=== PATIENT | male | born 1955 | race Caucasian/White ===

== ENCOUNTER 2017-09-26 09:22 | Emergency (ER) | payer OTHER | END 2017-09-26 09:44 | disposition left against medical advice (07) | LOC: UCEAST 09:22 | DX: J06.9 Acute upper respiratory infection, unspecified (principal); Z53.21 Procedure and treatment not carried out due to patient leaving prior to being seen by health care provider ==

== ENCOUNTER 2018-01-23 08:21 | Emergency (ER) | payer OTHER ==
--- NOTE | 2018-01-23 08:29 | UC ---
Hand/Wrist HPI - HPI Summary HPI Summary: 62 yo male presents with right thumb injury. He tells me that 2 days ago he was hiking and fell over a tree stump and sustained a FOOSH type injury. Later that night his right thumb began to hurt. Since that time has had increased pain and swelling with decreased movement. Denies numbness or tingling. - History Of Current Complaint Stated Complaint: THUMB INJURY Time Seen by Provider: 01/23/18 08:26 Hx Obtained From: Patient Onset/Duration: Sudden Onset Severity Initially: Moderate Severity Currently: Severe Pain Intensity: 7 Pain Scale Used: 0-10 Numeric Character Of Pain: Aching, Throbbing, Stiffness - Allergies/Home Medications Allergies/Adverse Reactions: Allergies Allergy/AdvReac Type Severity Reaction Status Date / Time Penicillins Allergy Hives Verified 01/23/18 08:33 Home Medications: Home Medications Ibuprofen 600 mg PO ONCE 01/23/18 [History Confirmed 01/23/18] PMH/Surg Hx/FS Hx/Imm Hx - Additional Past Medical History Additional PMH: BPH HSV2 Previously Healthy: Yes - Surgical History Surgical History: Yes Surgery Procedure, Year, and Place: L ankle surgery - Family History Known Family History: Positive: Cardiac Disease - Social History Occupation: Employed Full-time Lives: With Family Alcohol Use: Occasionally Substance Use Type: None Smoking Status (MU): Former Smoker - Immunization History Most Recent Influenza Vaccination: Apr 22 Most Recent Tetanus Shot: 2007 Most Recent Pneumonia Vaccination: no Review of Systems Constitutional: Negative Skin: Negative Respiratory: Negative Cardiovascular: Negative Neurovascular: Negative Musculoskeletal: Other: - Right thumb pain Neurological: Negative Psychological: Negative All Other Systems Reviewed And Are Negative: Yes Physical Exam - Summary Physical Exam Summary: GENERAL: NAD. WDWN. No pain distress. SKIN: No rashes, sores, lesions, or open wounds. NECK: Supple. Nontender. No lymphadenopathy. CHEST: No accessory muscle use. Breathing comfortably and in no distress. CV: Pulses intact radial and ulnar. MSK: RIGHT HAND: TTP all about thumb. Unable to flex or oppose due to pain. Keeps thumb extended. Moderate edema at thenar eminence. WRIST: NTTP and FROM. No snuffbox tenderness. NEURO: Alert. Sensations intact hand and all fingers. PSYCH: Age appropriate behavior. Triage Information Reviewed: Yes Vital Signs: Vital Signs: Temp Pulse Resp BP Pulse Ox 98.2 F 60 18 146/89 97 01/23/18 08:28 01/23/18 08:28 01/23/18 08:28 01/23/18 08:28 01/23/18 08:28 Vital Signs Reviewed: Yes Hand/Wrist Course/Dx - Course Course Of Treatment: XR: IMPRESSION: No fracture of the right thumb is noted. Suspect thumb sprain. Pt was provided with a thumb spica splint and advised to RICE and take ibuprofen for pain. - Differential Dx/Diagnosis Provider Diagnoses: Right thumb sprain Discharge - Sign-Out/Discharge Documenting (check all that apply): Patient Departure - Discharge Plan Condition: Stable Disposition: HOME Prescriptions: Ibuprofen TAB* [Motrin TAB* 600 MG] 600 mg PO Q8H PRN #30 tab PRN Reason: Pain Patient Education Materials: [facility] (ED) Referrals: Fabio Garcia MD [Primary Care Provider] - [facility] [Provider Group] - If Needed Additional Instructions: If you develop a fever, shortness of breath, chest pain, new or worsening symptoms - please call your PCP or go to the ED. Your blood pressure was high at todays visit. Please see your primary provider within 4 weeks for recheck and re-evaluation. 1) Rest, Ice, and elevate your hand/thumb as much as possible 2) Use the thumb splint for added comfort and support - Billing Disposition and Condition Condition: STABLE Disposition: Home
[2018-01-23 08:33] VITALS: BP 146/89
--- NOTE | 2018-01-23 09:02 | RAD ---
Indication: Right thumb pain after fall. 3 views of the right thumb demonstrates no fracture. No other bone or joint abnormality is identified. IMPRESSION: No fracture of the right thumb is noted.
== END 2018-01-23 09:19 | disposition home or self-care (01) ==
LOC: UCEAST 08:21
DX: S63.601A Unspecified sprain of right thumb, initial encounter (principal); W01.0XXA Fall on same level from slipping, tripping and stumbling without subsequent striking against object, initial encounter; Y93.01 Activity, walking, marching and hiking; Y92.9 Unspecified place or not applicable; Z88.0 Allergy status to penicillin; Z82.49 Family history of ischemic heart disease and other diseases of the circulatory system; Z87.891 Personal history of nicotine dependence
CPT/HCPCS: 99211; G0463

== ENCOUNTER 2019-08-13 07:37 | Inpatient (IN) | payer MEDICARE, OTHER ==
[2019-08-13] MEDS ORDERED: Aspirin 81 mg CHEW TAB* 81 MG TAB.CHEW PO ONE (07:47)
--- NOTE | 2019-08-13 07:55 | ED ---
HPI Chest Pain - HPI Summary HPI Summary: 64 year old M arriving via private car complains of chest pain described as heaviness and ache that started while using the thread mill yesterday 08/12/2019. Patient states he woke up today 08/13/2019 AM with diffuse chest pain radiating into the left side of his neck, jaw, and mouth. He states the pain does not radiate down his left arm. Patient states he drank coffee this morning which aggravated his chest pain. No shortness of breath. Symptoms rated 7/10 in severity at 0730 and 4/10 in severity currently. Patient states he did not take any medications prior to arrival. Symptoms aggravated by nothing. Symptoms alleviated by nothing. Patient states he has never had these symptoms before. No cardiac Hx. No Hx hypertension. Patient states Hx GERD 10-15 years ago. Medications reviewed. Allergies noted. Former smoker. Admits to ETOH daily. Patient states he exercises daily. - History of Current Complaint Chief Complaint: EDChestPainROMI Time Seen by Provider: 08/13/19 07:47 Hx Obtained From: Patient Onset/Duration: Started Days Ago - yesterday 08/12/2019, Still Present Timing: Intermittent Initial Severity: Severe - 7/10 Current Severity: Moderate Pain Intensity: 4 Pain Scale Used: 0-10 Numeric Chest Pain Location: Diffuse Chest Pain Radiates: Yes Chest Pain Radiates To:: Other - left side of his neck, jaw, mouth Character: Heaviness, Other: - ache Aggravating Factor(s): Nothing Alleviating Factor(s): Nothing Associated Signs and Symptoms: Negative: Shortness of Breath - Allergy/Home Medications Allergies/Adverse Reactions: Allergies Allergy/AdvReac Type Severity Reaction Status Date / Time Penicillins Allergy Hives Verified 01/23/18 08:33 PMH/Surg Hx/FS Hx/Imm Hx Endocrine/Hematology History: Denies: Hx Anemia, Hx Unexplained Bleeding Cardiovascular History: Denies: Hx Aneurysm, Hx Angina, Hx Angioplasty, Hx Auto Implanted Cardiovert Defib, Hx Cardiac Arrest, Hx Cardiomegaly, Hx Congenital Heart Disease, Hx Congestive Heart Failure, Hx Coronary Artery Disease, Hx Deep Vein Thrombosis, Hx Embolism, Hx Hypercholesterolemia, Hx Hypotension, Hx Hypertension, Hx Pacemaker/ICD, Hx Peripheral Vascular Disease, Hx Rheumatic Fever, Hx Syncope, Hx Valvular Heart Disease, Other Cardiovascular Problems/Disorders GI History: Reports: Hx Gastroesophageal Reflux Disease Musculoskeletal History: Denies: Hx Rheumatoid Arthritis, Hx Osteoporosis Sensory History: Reports: Hx Contacts or Glasses Denies: Hx Cataracts, Hx Eye Injury, Hx Eye Prosthesis, Hx Glaucoma, Hx Legally Blind, Hx Macular Degeneration, Hx Vision Problem, Hx Deafness, Hx Hearing Aid, Hx Hearing Problem, Other Sensory Impairments Opthamlomology History: Reports: Hx Contacts or Glasses Denies: Hx Cataracts, Hx Eye Injury, Hx Eye Prosthesis, Hx Glaucoma, Hx Legally Blind, Hx Macular Degeneration, Hx Vision Problem, Other Sensory Impairments Neurological History: Denies: Hx Dementia, Hx Developmental Delay, Hx Headaches, Hx Migraine, Hx Nerve Disease, Hx Seizures, Hx Spinal Cord Injury, Hx Transient Ischemic Attacks (TIA), Other Neuro Impairments/Disorders - Surgical History Surgery Procedure, Year, and Place: L ankle surgery Infectious Disease History: No Infectious Disease History: Denies: Traveled Outside the [place] in Last 30 Days - Family History Known Family History: Positive: Cardiac Disease - Social History Alcohol Use: Daily Substance Use Type: Reports: None Hx Tobacco Use: Yes Smoking Status (MU): Former Smoker Review of Systems Positive: Chest Pain Negative: Shortness Of Breath All Other Systems Reviewed And Are Negative: Yes Physical Exam - Summary Physical Exam Summary: Constitutional: Well-developed, Well-nourished, Alert. (-) Distressed Skin: Warm, Dry HENT: Normocephalic; Atraumatic Eyes: Conjunctiva normal Neck: Musculoskeletal ROM normal neck. (-) JVD, (-) Stridor, (-) Nuchal rigidity Cardio: Rhythm regular, rate normal, Heart sounds normal; (-) Murmur; 1+ DP on the right. 2+ DP on the left Pulmonary/Chest wall: Effort normal. (-) Respiratory distress, (-) Wheezes, (-) Rales Abd: Soft, (-) tenderness, (-) Distension, (-) Guarding, (-) Rebound Musculoskeletal: (-) Edema Lymph: (-) Cervical adenopathy Neuro: Alert, Oriented x3 Psych: Mood and affect Normal Triage Information Reviewed: Yes Vital Signs Reviewed: Yes Procedures - Sedation Patient Received Moderate/Deep Sedation with Procedure: No Diagnostics - Laboratory Result Diagrams: 08/13/19 07:52 08/13/19 07:52 Lab Statement: Any lab studies that have been ordered have been reviewed, and results considered in the medical decision making process. - Radiology CXR Radiology Interpretation Completed By: Radiologist Summary of Radiographic Findings: No acute cardiopulmonary process by radiograph. ED physician has reviewed this imaging report. - EKG 0740 Cardiac Rate: Bradycardia - 51 BPM EKG Rhythm: Sinus Bradycardia Summary of EKG Findings: An EKG at 0740 reveals sinus bradycardia 51 BPM. T wave inversions in lead 3. No STEMI. No acute changes. No prior EKG to compare. ED physician has reviewed and interpreted this EKG. 0925 Cardiac Rate: Bradycardia - 47 BPM EKG Rhythm: Sinus Bradycardia Summary of EKG Findings: An EKG at 0925 reveals sinus bradycardia 47 BPM. T wave inversions in lead 3. No STEMI. No acute changes. No significant change from his prior EKG. ED physician has reviewed and interpreted this EKG. Re-Evaluation - Re-Evaluation First Eval Re-Evaluation Time: 08:40 Comment: aware of troponin 0.06 Second Eval Re-Evaluation Time: 08:43 Change: Improved - patient feels better after NTG Third Eval Re-Evaluation Time: 09:28 Change: Worse - patient reports having worsening chest pain. will order more NTG , repeat trop and EKG. will call cardiology. Chest Pain Course/Dx - Course Course Of Treatment: 64 y/o male w hx tobacco use d/o, EtOH use p/w CP. Patient reporting chest pressure ranges neck worse with exertion. Concern for ACS. EKG shows T-wave inversions in lead 3. No STEMI. Initial troponin 0.06, patient felt better with nitroglycerin and aspirin. Patient reported increasing pain, was given some nitroglycerin, repeat troponin ordered and elevated to 0.16. Next EKG with T-wave inversions in 3, flattening in aVF. Concern for unstable angina, cardiology Dr. Curry at bedside. Heparin drip ordered. Patient to be admitted. - Diagnoses Provider Diagnoses: Chest pain, Non-STEMI (non-ST elevated myocardial infarction), Unstable angina - Provider Notifications Discussed Care Of Patient With: Doar Dietz Time Discussed With Above Provider: 09:17 Instructed by Provider To: Other - Dr. Dietz hospitalist agrees to admit patient. 0931 Dr. Curry cardiology aware of patient. - Critical Care Time Critical Care Time: 30-74 min - Upon my evaluation, this patient had a high probability of imminent or life-threatening deterioration due to unstable angina , which required my direct attention, intervention, and personal management. I have personally provided 35 minutes of critical care time exclusive of time spent on separately billable procedures. Time includes review of laboratory data , radiology results, discussion with consultants, and monitoring for potential decompensation. Interventions were performed as documented above. Discharge ED - Sign-Out/Discharge Documenting (check all that apply): Patient Departure - Discharge Plan Condition: Stable Disposition: ADMITTED TO [facility] Referrals: Fabio Garcia MD [Primary Care Provider] - - Billing Disposition and Condition Condition: STABLE Disposition: Admitted to [facility] - Attestation Statements Document Initiated by Letyibe: Yes Documenting Scribe: Tatianna Boyce Provider For Whom Bernarda is Documenting (Include Credential): Brando Mayo MD Scribe Attestation: ITatianna, scribed for Brando Mayo MD on 08/13/19 at 1031. Scribe Documentation Reviewed: Yes Provider Attestation: The documentation as recorded by the scribeTatianna accurately reflects the service I personally performed and the decisions made by me, Brando Mayo MD Status of Scribe Document: Viewed
[2019-08-13] MEDS: Nitroglycerin TAB 0.4 MG* 0.4 MG TAB SL ONE ×2 (08:02→09:31)
[2019-08-13 08:06] LABS: ABS Basophils 0.1 10^3/ul (0-0.2); ABS Eosinophils 0.2 10^3/ul (0-0.6); ABS Lymphocytes 1.5 10^3/ul (1.0-4.8); ABS Monocytes 0.5 10^3/ul (0-0.8); ABS Neutrophils 2.1 10^3/ul (1.5-7.7); Eosinophil % 4.4 %; Hematocrit 41 % (42-52); Lymphocyte % 34.2 %; Mean Corpuscular HGB Conc 34 g/dL (31-36); Mean Corpuscular Hemoglobin 32 pg (27-31); Mean Corpuscular Volume 92 fL (80-94); Nucleated Red Blood Cells % 0.1; Platelet Count 277 10^3/uL (150-450); Red Blood Count 4.42 10^6 /uL (4.18-5.48); Red Cell Distribution Width 14 % (10-15); White Blood Count 4.4 10^3/uL (3.5-10.8)
[2019-08-13 08:07] LABS: INR 0.97 (0.82-1.09)
[2019-08-13 08:16] LABS: ALT 18 U/L (7-52); AST 20 U/L (13-39); Albumin 4.5 g/dL (3.2-5.2); Albumin/Globulin Ratio 1.6 (1-3); Alkaline Phosphatase 78 U/L (34-104); Anion Gap 5 mmol/L (2-11); BUN/Creatinine Ratio 20.7 (8-20); Blood Urea Nitrogen 17 mg/dL (6-24); CO2 Carbon Dioxide 30 mmol/L (22-32); Calcium 9.5 mg/dL (8.6-10.3); Chloride 104 mmol/L (101-111); EGFR African American 114.1 (>60); EGFR Non-African American 94.3 (>60); Globulin 2.8 g/dL (2-4); Glucose 100 mg/dL (70-100); Potassium 4.4 mmol/L (3.5-5.0); Sodium 139 mmol/L (135-145); Total Protein 7.3 g/dL (6.4-8.9)
[2019-08-13 08:26] LABS: Troponin I 0.06 ng/mL (<0.03)
[2019-08-13] MEDS ORDERED: Heparin DRIP 25,000 UNITS(*) 25,000 UNITS/500 ML BAG IV SCH (10:00)
[2019-08-13] MEDS ORDERED: Heparin VIAL(*) 5000 UNITS/ML VIAL (FIVE THOUSAND) IV PRN (10:06)
[2019-08-13] MEDS ORDERED: Heparin VIAL(*) 5000 UNITS/ML VIAL (FIVE THOUSAND) ONE (10:08)
[2019-08-13] MEDS ORDERED: nitroGLYCERIN DRIP* 25,000 MCG/250 ML BTL IV ONE (10:17)
[2019-08-13] MEDS ORDERED: Acetaminophen TAB* 325 MG PO PRN (10:20)
[2019-08-13] MEDS ORDERED: Thiamine INJ* 100 MG/ML 2 ML VIAL IM ONE (10:20)
[2019-08-13 10:22] LABS: Activated Partial Thrombo Time 31.8 seconds (26.0-38.0)
[2019-08-13 10:27] LABS: Troponin I 0.19 ng/mL (<0.03)
[2019-08-13] MEDS ORDERED: Diazepam TAB(*) 5 MG PO PRN (10:29)
[2019-08-13] MEDS ORDERED: diPHENhydraMINE PO* 25 MG PO PRN (10:29)
[2019-08-13] MEDS ORDERED: NS 0.9% 1000 ML** 1,000 ML IV SCH ×2 (10:30→18:45)
[2019-08-13] MEDS ORDERED: Nicotine* 2MG (FRUIT FLAVOR) GUM PO PRN (10:50)
[2019-08-13] MEDS ORDERED: LORazepam TAB(*) 1 MG PO SCH (11:00)
[2019-08-13] MEDS ORDERED: fentaNYL* 50 MCG/ML 2 ML VIAL (100 MCG VIAL) ONE (11:52)
[2019-08-13] MEDS ORDERED: Midazolam* 1 MG/ML 5 ML VIAL (5 MG) ONE (11:52)
[2019-08-13] MEDS ORDERED: Heparin 2 UNITS/ML IVPREMIX* 2,000 ML IV ONE (11:53)
[2019-08-13] MEDS ORDERED: nitroGLYCERIN DRIP* 25,000 MCG/250 ML BTL ONE (11:53)
[2019-08-13] MEDS ORDERED: VERAPAMIL 2.5 MG/ML 2 ML VIAL ** 5 mg/2 ml ONE (11:53)
[2019-08-13] MEDS ORDERED: Lidocaine 1% INJ* 10 MG/ML 30 ML SDV ONE (11:53)
[2019-08-13] MEDS ORDERED: Heparin(*) 1000 UNIT/ML 10 ML VIAL CATH LAB IV ONE (11:53)
[2019-08-13] MEDS ORDERED: Iohexol 350 (CONTRAST) 200 ML MDV IV ONE ×2 (11:54)
--- NOTE | 2019-08-13 12:09 | CONS ---
CARDIOLOGY CONSULTATION: DATE OF CONSULT: 08/13/19 INDICATION FOR CONSULTATION: Non-STEMI crescendo angina. HISTORY OF PRESENT ILLNESS: The patient is a 64-year-old gentleman without significant past medical history, who came to the emergency room because of chest pain. The patient states that he usually ru ns on the treadmill without any difficulty. On Tuesday, he was running on the treadmill and got tavo st pain. He has had a fullness in his chest that radiated up into his jaw. He had exercise for abou t 10 minutes and decided to stop. After resting for 2 or 3 minutes, his symptoms went away. The pat hossein went to the [employer] yesterday without any difficulty, without any symptoms. This morni ng he woke up at 5 o'clock this morning with the same symptoms, pressure on his chest radiating to hi s jaw and decided to come to the emergency room. His initial EKG showed normal sinus rhythm with T-w ave flattening in lead III and aVF. Initial troponin level was 0.06. He later started developing th e same discomfort and he was given sublingual nitroglycerin in the emergency room with relief of his symptoms. His second EKG showed T-wave inversions in leads III and aVF. Currently, the patient is p ain free. PAST MEDICAL HISTORY: Unremarkable. PAST SURGICAL HISTORY: No surgeries in the past He does not have a primary care physician. MEDICATIONS: He does not take any medications. ALLERGIES: No known drug allergies. FAMILY HISTORY: No family history of early coronary artery disease or cardiac arrhythmias. SOCIAL HISTORY: He lives alone. He is currently working. He exercises on a regular basis. He chanelle es tobacco or alcohol use. REVIEW OF SYSTEMS: Negative for fevers and chills. Negative for changes in bowel or bladder habits. Negative for changes in weight. Other 12-point review is unremarkable. PHYSICAL EXAM: Height is 5 feet 7 inches, weight is 180 pounds, temperature 97.9, heart rate is 60, blood pressure 179/93, respiratory rate is 19, oxygen saturation 100% on room air. Sclerae anicteric . Oropharynx is pink without erythema. Carotids are 2+ without bruits. JVD is normal. Thyroid is n ormal. Cardiac Exam: S1, S2 without any murmurs, rubs, or gallops. Lungs are clear to auscultation bilaterally. There is no dullness to percussion. Abdomen is soft, nontender, nondistended with norm oactive bowel sounds. Extremities show no edema. He has 2+ pulses throughout. The patient is awake , alert, and oriented. He moves all 4 extremities equally. DIAGNOSTIC STUDIES/LAB DATA: CBC within normal limits. Chemistries within normal limits. BUN 17, c reatinine 0.8, troponins as described above. AST and ALT are normal. EKG as described above. IMPRESSION: A 64-year-old gentleman who is admitted to the emergency room with crescendo angina and non-ST elevation myocardial infarction cardiac event. The patient has been started on heparin and ni troglycerin. The patient is given an aspirin in the emergency room. It is my recommendation that the patient undergo a cardiac catheterization. The risks and benefits o f this have been described in detail. The patient is willing to proceed. Further recommendations pe nding the results of this catheterization. [id number]/[facility] #: [id number]
[2019-08-13] MEDS ORDERED: Ticagrelor* 90 MG TAB PO ONE (12:33)
--- NOTE | 2019-08-13 12:35 | HP ---
CC: Dr. Garcia; Dr. Raúl Curry HISTORY AND PHYSICAL: DATE OF ADMISSION: 08/13/19 TIME OF EVALUATION: 10 a.m. PRIMARY CARE PROVIDER: Dr. Garcia. CONSULTING WEB USER EXPERIENCE STRATEGIST: Dr. Raúl Curry. CHIEF COMPLAINT: Chest pain. HISTORY OF PRESENT ILLNESS: Mr. Bonilla is a 64-year-old male with a past medical history of tobacco a nd alcohol abuse, who presented to the emergency room with complaints of chest pain. The patient states that he was in his usual state of health and actually had a physical with his [facility] care provider on 08/10/19. He states that at that time his EKG was normal and he had no complain ts. Yesterday, he went to walk on a treadmill and this was not unusual for him. He states that he e xercises a little every day, and yesterday, while walking on an incline, after 5 minutes of exercise, he started to experience chest pressure at the anterior chest wall radiating to his neck and jaw. H e states that he stopped walking on the treadmill, and after 10 minutes of rest, the pain resolved an d he went on about his day with no further symptoms. This morning, he woke up and he had a similar chest pressure that he rated at 2/10, radiating to his neck and jaw with no provoking exercise, so he came to the emergency room for further evaluation. He denies chest pain, nausea, vomiting, shortness of breath, diaphoresis, or urinary complaints. The hospitalist service was called as the patient was found to have new EKG changes and troponin elev ation. PAST MEDICAL HISTORY: 1. Tobacco abuse. 2. Alcohol abuse. MEDICATION LIST: 1. Cholecalciferol 2000 units p.o. daily. 2. Lunesta 2 mg p.o. at bedtime. 3. Ibuprofen 600 mg p.o. q.8 hours p.r.n. pain. ALLERGIES: With PENICILLIN, the patient had hives. FAMILY HISTORY: The patient's father was a smoker, had a history of COPD. His mother is in her 80s and alive, and she has a history of atrial fibrillation. His grandfather had a history of coronary a rtery disease in his 60s. SOCIAL HISTORY: The patient describes smoking on and off for many years. He smoked through college until his 30s and quit for a while. He then started smoking sporadically and since his 10 years ago, he has been smoking more frequently, now up to half a pack a day. The patient states that he drinks 250 mL of vodka every day. He has never experienced withdrawal, but he says that he never really stopped drinking. He states that he smokes marijuana every 2 to 3 weeks, but denies using an y other drugs. 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 REVIEW OF SYSTEMS: A 14-point review of systems was performed, and all the pertinent negatives and p ositive findings are in the HPI. PHYSICAL EXAMINATION GENERAL: The patient is a pleasant, elderly gentleman, sitting up in the ED stretcher, in no acute d istress. VITAL SIGNS: Temperature 97.9, heart rate is 57, respiratory rate is 15, oxygen saturation is 100% o n room air, blood pressure is 141/78. HEENT: Pupils are equal. Moist mucous membranes. CHEST: Breath sounds present bilaterally with no added sounds. CVS: Normal S1, S2. Regular rate and rhythm. ABDOMEN: Soft, nontender, nondistended. Bowel sounds are present. EXTREMITIES: No edema. No calf tenderness. NEURO: Alert and oriented x3. Able to move all 4 extremities. LABORATORY AND IMAGING DATA: The patient had a CBC that showed WBC of 4.4, hemoglobin of 14, hemato crit 41, platelets of 277, 47% neutrophils. INR is 0.97. Chemistry showed sodium of 139, potassium 4 .4, chloride 104, bicarb of 30, BUN of 17, creatinine of 0.82, glucose of 100, calcium is 9.5. LFTs are normal. First troponin is 0.06, second troponin is 0.19. Chest x-ray showed no acute cardiopulmonary disease. Initial EKG done on 08/13/19 at 7:40 a.m. showed sinus bradycardia at 51 beats per minute with sugges tion of T-wave inversions in III and a followup EKG done at 9:25 a.m. showed definite T-wave inversio ns in III and flat Ts in aVF. ASSESSMENT AND PLAN: Mr. Bonilla is a 64-year-old male with a past medical history of tobacco and alco hol abuse, who presents to the emergency room with complaints of chest pain, initially on exertion, n ow at rest, was found to have acute coronary syndrome. 1. Acute coronary syndrome. The patient's symptoms are suggestive of unstable angina that is now pr ogressing to non-ST elevation myocardial infarction. Initially, he was chest pain free, but his chest pain recurred and now he is on a nitro drip, so he will be admitted to the intensive care unit. The case was signed out to Ann Manriquez, nurse practitioner, in intensive care unit. The patient alread y received aspirin. He will be on a heparin and a nitroglycerin drip. Beta- blockers are not indica paulie at this time as his heart rate is already in the low 50s. He will be started on high-dose statin s and we will check a lipid profile. A cardiology consultation was requested with Dr. Curry, and the plan is for the patient to have a cardiac cath done today. Transthoracic echocardiogram has been or dered. 2. Alcohol abuse. The patient has been drinking 250 mL of vodka daily for a long time. He denies a ny prior episodes of withdrawal, but he has never really stopped drinking for long enough to experien ce it. He will be placed on a [place] protocol and we will continue to monitor. 3. Tobacco abuse. The patient will have nicotine supplementation available as needed. 4. DVT prophylaxis: The patient has a score of 3 on the DVT Prophylaxis Risk Assessment Guide and h e is already on a heparin drip. 5. Code status is full. TIME SPENT: Approximately 55 minutes of critical care time was spent to complete this admission. [id number]/[facility] #: [id number]
[2019-08-13] MEDS ORDERED: Nitroglycerin TAB 0.4 MG* 0.4 MG TAB SL PRN (13:31)
[2019-08-13] MEDS: Atorvastatin* 80 MG TAB PO SCH (14:10)
[2019-08-13] MEDS: Metoprolol Tartrate TAB* 25 MG PO SCH ×2 (14:22→20:41)
[2019-08-13 14:36] LABS: Creatine Kinase 85 U/L (10-223)
[2019-08-13 14:42] LABS: CKMB ng/mL 7.9 ng/mL (0.6-6.3)
[2019-08-13 14:44] LABS: Troponin I 0.92 ng/mL (<0.03)
--- NOTE | 2019-08-13 16:55 | CATH ---
"*[facility]* [place] [address] Main: [phone] [email or web address] Cardiac Catheterization Patient: Shawn Bonilla : 1955 Study Date: 08/13/2019 Age: 64 Gender: M HR: Height: 67 in /170.2 cm BSA: 1.99 m^2 Weight: 180 lb /81.8 kg BMI: 28.2 kg/m^2 Nurse Intern: Raúl Curry MD Ordering Physician: Raúl Curry MD Referring Physician: Raúl Curry MD, Patricio Chao, --- - Left coronary angiography. - Right coronary angiography. - Left heart catheterization with angiography. Summary: 1. 1st obtuse marginal: Ostial lesion: There is a 95% stenosis. 2. Left ventricle: Systolic function is normal. The estimated ejection fraction is 55-60%. Wall motion is normal; there are no regional wall motion abnormalities. Recommendations: PCI of OM1 Labs, prior tests, procedures, and surgery: Blood tests: Troponin I (pre-procedure) of 0.19 ng/ml. International normalized ratio (INR) of 0.97. Serum potassium (K) of 4.4 mEq/l. Serum sodium (Na) of 139 mEq/l. Serum creatinine (current admission) of 0.8 mg/dl. Blood urea nitrogen of 17 mg/dl. Platelet count of 277 th/ul. White blood cell count (WBC) of 0 th/ul. Red blood cell count (RBC) of 4400 th/ul. Hematocrit of 41 %. Hemoglobin (pre-procedure) of 14 g/dl. Study data: Study status: Cardiac cath: urgent. Location: Catheterization laboratory. Consent: The risks, benefits, and alternatives to the procedure were explained to the patient and/or their healthcare hospital sales representative and written informed consent was obtained. All available pre-procedure labs were reviewed. Height: 170.2 cm. 67 in. Weight: 81.8 kg. 180 lb. Body surface area: 1.99 m^2. Body mass index: 28.2 kg/m^2. Procedure: 1. Initial setup. The patient was brought to the laboratory. Surface ECG leads, blood pressure measurements, and pulse oximetric signals were monitored. A baseline seven lead ECG was recorded. A time out was observed per protocol. 2. Skin preparation. The planned puncture sites were prepped and draped in the usual sterile manner. 3. Local anesthesia. 1% lidocaine was administered. 4. Supplemental oxygen. Oxygen, 2 L/min was administered throughout the procedure. 5. Local anesthesia. 1% lidocaine (1 ml) was administered. 6. Right radial artery access. A 6F Glidesheath Slender sheath was advanced into the vessel. 7. Selective left coronary angiography. A 5F TIG 4.0 catheter was advanced into the left coronary vessel ostium under fluoroscopic guidance. Contrast was injected. Images were obtained in multiple projections. 8. Selective right coronary angiography. A 5F AR 1 Impulse catheter was advanced into the right coronary vessel ostium under fluoroscopic guidance. Contrast was injected. Images were obtained in multiple projections. 9. Left heart catheterization with angiography. A 5F PIG Short Radial catheter was advanced across the aortic valve to the left ventricle under fluoroscopic guidance. 35 ml of contrast was injected at 10 ml/s. Study completion: Minimal estimated blood loss. All catheters inserted during the procedure were removed. There were no apparent complications. Administered medications: Nitroglycerin, infusion, at a rate of 3mcg/min, IV. Heparin, infusion, at a rate of 1,000units/hr, IV was discontinued. VERSED (Midazolam), 2mg, IV. (Radial) Verapamil, 3mg, intra-arterially. (Radial) Nitroglycerin, 300mcg, intra-arterially. Fentanyl, 25mcg, IV. NaCl 0.9% , infusion , at a rate of 100 ml/hr. Contrast: Omnipaque 350 75 ml (total dose). Radiation: Fluoroscopy dose: 159.7 cGy. Discharge: The patient tolerated the procedure well and was discharged from the lab in stable condition. Findings Coronary arteries: The coronary circulation is right dominant. Left main: Normal, 0% stenosis. LAD: Mild diffuse disease. Left circumflex: Normal, 0% stenosis. 1st obtuse marginal: Ostial lesion: There is a 95% stenosis. Right coronary: Normal, 0% stenosis. Left ventricle: Systolic function is normal. The estimated ejection fraction is 55-60%. Wall motion is normal; there are no regional wall motion abnormalities. Hemodynamics: + + + |Stage description |Condition 1 - | + + + |LV pressure s/d, ed |142/-4, 14, dP/hr=5852 mm Hg/s| + + + |Arterial pressure s/d (m)|176/78 (113) | + + + Prepared and electronically signed by Raúl Curry MD 08/13/2019 16:55"
--- NOTE | 2019-08-13 18:04 | PN ---
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 Chest pain free, heparin and NTG drip have been discontinued. Right radial cath site is benign with no evidence of hematoma or erythema. No ectopy on telemetry. Discussed POC with cardiology, patient will likely be discharged in AM after being seen by Dr. Curry. Recommend continued monitoring on tele overnight with post-cath protocol as per cardiology. May be OOB, ambulate with assist as tolerated. Comminicated with primary RN. Condition: Stable.
[2019-08-13] MEDS: Ticagrelor* 90 MG TAB PO SCH (20:42)
[2019-08-13] MEDS: Zolpidem TAB* 5 MG PO SCH (20:42)
[2019-08-13 20:43] LABS: Creatine Kinase 172 U/L (10-223)
[2019-08-13 20:48] LABS: CKMB ng/mL 13.9 ng/mL (0.6-6.3); Troponin I 1.89 ng/mL (<0.03)
[2019-08-14 01:53] LABS: Creatine Kinase 147 U/L (10-223)
[2019-08-14 02:08] LABS: CKMB ng/mL 12.1 ng/mL (0.6-6.3)
[2019-08-14 02:23] LABS: Troponin I 2.23 ng/mL (<0.03)
[2019-08-14 06:25] LABS: BUN/Creatinine Ratio 16.7 (8-20); EGFR African American 146.6 (>60); EGFR Non-African American 121.1 (>60); Potassium 3.4 mmol/L (3.5-5.0)
[2019-08-14 06:54] LABS: HDL Cholesterol 48.1 mg/dL
[2019-08-14] MEDS: Metoprolol Tartrate TAB* 25 MG PO SCH ×3 (07:08→21:05)
[2019-08-14] MEDS: Ticagrelor* 90 MG TAB PO SCH ×2 (08:33→21:04)
[2019-08-14] MEDS: Multivitamins/Minerals TAB PO SCH (08:33)
[2019-08-14] MEDS: Atorvastatin* 80 MG TAB PO SCH (08:33)
[2019-08-14] MEDS: Thiamine TAB* 100 MG TAB PO SCH (08:33)
[2019-08-14] MEDS: Folic Acid TAB* 1 MG PO SCH (08:33)
[2019-08-14] MEDS: Aspirin 81 mg CHEW TAB* 81 MG TAB.CHEW PO SCH (08:33)
[2019-08-14] MEDS ORDERED: Potassium Chlor TAB* 20 MEQ TAB.ER PO ONE (08:54)
[2019-08-14] MEDS ORDERED: Metoprolol Tartrate TAB* 25 MG PO SCH (09:30)
--- NOTE | 2019-08-14 09:31 | PN ---
Subjective Date of Service: 08/14/19 - NSTEMI s/p TEVIN to OM1 Interval History: No events last night, slight oozing involving right radial access site thus, TR band left in place. Patient offers no complaints. Denies chest pain, sob, dizziness or palpitations. He is anxious to go home. Has not ambulated the halls yet. 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 PROTOCOL [facility]; Protocol Metoprolol Tartrate (Lopressor Tab*) 37.5 mg PO BID [facility] Multivitamins/Minerals (Theragran/Minerals Tab*) 1 tab PO DAILY [facility] Last Admin: 08/14/19 08:33 Dose: 1 tab Nicotine Polacrilex (Nicotine Gum*) 2 mg PO Q2H PRN PRN Reason: CRAVING Nitroglycerin (Nitroglycerin Tab 0.4 Mg*) 0.4 mg SL Q5M PRN PRN Reason: ANGINA Thiamine HCl (Vitamin B-1 Tab*) 100 mg PO DAILY [facility] Last Admin: 08/14/19 08:33 Dose: 100 mg Ticagrelor (Brilinta*) 90 mg PO BID [facility] Last Admin: 08/14/19 08:33 Dose: 90 mg Zolpidem Tartrate (Ambien Tab*) 5 mg PO BEDTIME [facility] Last Admin: 08/13/19 20:42 Dose: 5 mg Objective Vital Signs: Temp Pulse Resp BP Pulse Ox 97.7 F 55 18 125/76 96 08/14/19 07:59 08/14/19 07:45 08/14/19 07:47 08/14/19 07:45 08/14/19 07:45 Oxygen Devices in Use Now: None Appearance: sitting in chair, A+ O x3, cooperative with exam. Offers no complaints. Ears/Nose/Mouth/Throat: NL Teeth, Lips, Gums, Clear Oropharnyx, Mucous Membranes Moist Neck: NL Appearance and Movements; NL JVP, Trachea Midline Respiratory: Symmetrical Chest Expansion and Respiratory Effort, Clear to Auscultation Cardiovascular: NL Sounds; No Murmurs; No JVD, RRR, No Edema Extremities: No Edema, - - right radial access site TR band in place but deflater. 3+ right radial pulse. no hematoma. non tender to palpation. Skin: No Rash or Ulcers Neurological: Alert and Oriented x 3 Lines/Tubes/Other Access: Clean, Dry and Intact Peripheral IV Laboratory Results: 08/13/19 07:52 08/14/19 06:00 INR (Anticoag Therapy) 0.97 (0.82-1.09) 08/13/19 07:52 APTT 31.8 seconds (26.0-38.0) 08/13/19 07:52 Total Bilirubin 0.40 mg/dL (0.2-1.0) 08/13/19 07:52 AST 20 U/L (13-39) 08/13/19 07:52 ALT 18 U/L (7-52) 08/13/19 07:52 Alkaline Phosphatase 78 U/L (34-104) 08/13/19 07:52 CK-MB (CK-2) 12.1 ng/mL (0.6-6.3) H 08/14/19 01:26 Total Protein 7.3 g/dL (6.4-8.9) 08/13/19 07:52 Albumin 4.5 g/dL (3.2-5.2) 08/13/19 07:52 Globulin 2.8 g/dL (2-4) 08/13/19 07:52 Albumin/Globulin Ratio 1.6 (1-3) 08/13/19 07:52 Triglycerides 87 mg/dL 08/14/19 06:00 Cholesterol 154 mg/dL 08/14/19 06:00 LDL Cholesterol 89 mg/dL 08/14/19 06:00 HDL Cholesterol 48.1 mg/dL 08/14/19 06:00 08/13/19 08/13/19 08/13/19 07:52 09:27 14:07 Troponin I 0.06 H* 0.19 H* 0.92 H* 08/13/19 08/14/19 20:20 01:26 Troponin I 1.89 H* 2.23 H* Laboratory Results - last 24 hr 08/13/19 08/13/19 08/13/19 07:52 09:27 12:41 INR (Anticoag Therapy) 0.97 APTT 31.8 POC Activ Clotting Time < 135 Sodium Potassium Chloride Carbon Dioxide Anion Gap BUN Creatinine Est GFR ( Amer) Est GFR (Non-Af Amer) BUN/Creatinine Ratio Glucose Calcium Total Creatine Kinase CK-MB (CK-2) Troponin I 0.19 H* Triglycerides Cholesterol LDL Cholesterol HDL Cholesterol 08/13/19 08/13/19 08/13/19 12:51 14:07 20:20 INR (Anticoag Therapy) APTT POC Activ Clotting Time 187 Sodium Potassium Chloride Carbon Dioxide Anion Gap BUN Creatinine Est GFR ( Amer) Est GFR (Non-Af Amer) BUN/Creatinine Ratio Glucose Calcium Total Creatine Kinase 85 172 CK-MB (CK-2) 7.9 H 13.9 H Troponin I 0.92 H* 1.89 H* Triglycerides Cholesterol LDL Cholesterol HDL Cholesterol 08/14/19 08/14/19 08/14/19 01:26 06:00 06:00 INR (Anticoag Therapy) APTT POC Activ Clotting Time Sodium 138 Potassium 3.4 L Chloride 109 Carbon Dioxide 22 Anion Gap 7 BUN 11 Creatinine 0.66 L Est GFR ( Amer) 146.6 Est GFR (Non-Af Amer) 121.1 BUN/Creatinine Ratio 16.7 Glucose 93 Calcium 8.0 L Total Creatine Kinase 147 CK-MB (CK-2) 12.1 H Troponin I 2.23 H* Triglycerides 87 Cholesterol 154 LDL Cholesterol 89 HDL Cholesterol 48.1 Diagnostic Imaging: To view the full procedure details, close this document and click on the camera icon from the Reports list. 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 - Right coronary angiography. - Left heart catheterization with angiography. Summary: 1. 1st obtuse marginal: Ostial lesion: There is a 95% stenosis. 2. Left ventricle: Systolic function is normal. The estimated ejection fraction is 55-60%. Wall motion is normal; there are no regional wall motion abnormalities. Recommendations: PCI of OM1 Labs, prior tests, procedures, and surgery: Blood tests: Troponin I (pre-procedure) of 0.19 ng/ml. International normalized ratio (INR) of 0.97. Serum potassium (K) of 4.4 mEq/l. Serum sodium (Na) of 139 mEq/l. Serum creatinine (current admission) of 0.8 mg/dl. Blood urea nitrogen of 17 mg/dl. This report is only to be considered final once signed by the Provider(s) as displayed in the "<Electronically Signed by >" field (s). Absence of a signature indicates the report is in a draft status and still needs to be finalized. In the event this document was created by someone other than the signing Provider, the individual initiating the document will be listed in the "Entered by:" or "Dictated by:" calderón. EKG Data: Telemetry 08/14/2019 reviewed; Sinus rhythm -sinus michael. HR mid 40's while awake at times. ECG 08/14/2019; Sinus bradycardia rate 53, no ST abnormalities. Assessment/Plan #1; NSTEMI s/p TEVIN to OM1 08/13/2019. LVEF 55% on LV gram. No recurrent c/o chest pain since presentation. Now on ASA 81/day, Brilinta 90mg Po BID, Lipitor 80QHS and Lopressor therapy. He has had periods of relative bradycardia thus, will reduce Lopressor to 25mg PO BID. Will consider adding ACEI if BP is elevated which he has had periods of. Right radial access site examined, no hematoma. arm immobilzer removed and I asked nursing staff to take off TR band. #2 h/o HLD; LDL 89. Goal LDL 70 now on high intensity statin therapy. Will need repeat outpatient FLP/LFT in 6 weeks time. #3 h/o Tobacco use; I personally reviewed importance of smoking cessation with patient for overall cardiovascular benefits. Continue nicotine patch. #4 hypokalemia; K+ 3.4 will replace with 40 MEQ K-Dur #5 Disposition pending course. Patient is stable for transfer to . Will follow after medication changes as mentioned above. Attending: Raúl Curry
[2019-08-14 09:44] LABS: Troponin I 1.75 ng/mL (<0.03)
--- NOTE | 2019-08-14 12:26 | PN ---
Date of Service: 08/14/19 Critical Care Services: Patient seen and examined. Walking the halls, no chest pain, no SOB. Relative bradycardia this morning with infrequent PVCs on tele. No further overnight events. Vital Signs: Temp Pulse Resp BP SpO2 FiO2 98.6 F 65 12 120/75 96 21 08/14/19 11:56 08/14/19 09:15 08/14/19 11:01 08/14/19 11:01 08/14/19 09:15 08/14 06:19 Physical Exam: Gen: Alert, NAD HEENT: PERRLA, atraumatic, normcephalic Lungs: clear bilaterally to auscultation Cardiac: +s1s2, regular rate and rhythm, no murmurs or gallups Abdomen: benign Extremities: no clubbing or edema Neuro: A&Ox3, no focalities Fluid Balance (Past 24 Hours): Intake & Output 08/12/19 08/13/19 08/14/19 08/15/19 06:59 06:59 06:59 06:59 Intake Total 3024.8 480 Output Total 2400 750 Balance 624.8 -270 Weight 202 lb 8 oz Intake: IV Fluids 1313.3 NS (0.9%) 1301 Medicated IV 11.5 CC - Nitroglycerine/ 11.5 Tridil Oral 1700 480 Output: Urine 2400 750 Other: Estimated Void Large Labs: Laboratory Results - last 24 hr 08/13/19 08/13/19 08/13/19 12:41 12:51 14:07 POC Activ Clotting Time < 135 187 Sodium Potassium Chloride Carbon Dioxide Anion Gap BUN Creatinine Est GFR ( Amer) Est GFR (Non-Af Amer) BUN/Creatinine Ratio Glucose Calcium Total Creatine Kinase 85 CK-MB (CK-2) 7.9 H Troponin I 0.92 H* Triglycerides Cholesterol LDL Cholesterol HDL Cholesterol 08/13/19 08/14/19 08/14/19 20:20 01:26 06:00 POC Activ Clotting Time Sodium Potassium Chloride Carbon Dioxide Anion Gap BUN Creatinine Est GFR ( Amer) Est GFR (Non-Af Amer) BUN/Creatinine Ratio Glucose Calcium Total Creatine Kinase 172 147 CK-MB (CK-2) 13.9 H 12.1 H Troponin I 1.89 H* 2.23 H* Triglycerides 87 Cholesterol 154 LDL Cholesterol 89 HDL Cholesterol 48.1 08/14/19 06:00 POC Activ Clotting Time Sodium 138 Potassium 3.4 L Chloride 109 Carbon Dioxide 22 Anion Gap 7 BUN 11 Creatinine 0.66 L Est GFR ( Amer) 146.6 Est GFR (Non-Af Amer) 121.1 BUN/Creatinine Ratio 16.7 Glucose 93 Calcium 8.0 L Total Creatine Kinase CK-MB (CK-2) Troponin I 1.75 H* Triglycerides Cholesterol LDL Cholesterol HDL Cholesterol Studies: Patient Name: KAREL HIGGINS Medical Record#: [id number] Ordering Physician: Brando Mayo MD Acct.#: [id number] : 1955 Age: 64 Sex: M Location: EMERGENCY DEPARTMENT Exam Date: 08/13/19806 ADM Status: PRE ER Order Information: CHEST PA & LAT 2 VWS Accession Number: [id number] CPT: 91394 INDICATION: Chest pain COMPARISON: April 16, 2004 chest radiograph TECHNIQUE: Dual-energy PA and lateral views of the chest were obtained. FINDINGS: Overlying leads obscure the [id number]. The lungs are clear. There is no pleural effusion. The cardiomediastinal silhouette is within normal limits. The upper abdominal contents are normal. Osseous structures are unremarkable. IMPRESSION: No acute cardiopulmonary process by radiograph Nutrition: Heart healthy diet Impression: This is a 64 year old male patient with no reported significant medical history that presented to the ED with complaints of exertional chest pain, ruled in for NSTEMI. Diagnoses: 1. NSTEMI 2. Tobacco Abuse 3. HLD 4. ETOH abuse Plan: Neuro - No acute issues CV - s/p C 08/13/2019 with drug eluting stent to obtuse marginal; trops josephine at 2.23, now trending down at 1.75 today - NTG drip and heparin drip discontinued yesterday - Continue ASA 81mg daily, Brilinta 90mg BID, and high dose statin therapy with liptor 80 mg evening - Lopressor initiated today as per cardiology, continue tele and monitor for bradycardia - Defer to cardiology regarding ANY inhibitor - Smoking cessation encouraged, ETOH cessation encouraged; on WAM, MVI, folate and thiamine - goal Mag>2, K >4 Pulm - No acute issues GI - No acute issues - HH diet Renal - Renal function stable, recieved IV hydration post cath Endocrine - No acute issues, A1C pending ID - No acute issues Musculoskeletal - Ambulate as tolerated - Right radial cath site with no hematoma DVT prophy - Ambulate Full code status Disposition: transfer to [address] [place] [address] as per cardiology Critical Care Time: 35 minutes
--- NOTE | 2019-08-14 20:18 | CATH ---
CC: Dr. Curry * STENT REPORT: DATE OF PROCEDURE: 08/13/19 - ROOM #451 SHIRT TURNER: Dr. Curry. PROCEDURE: Diagnostic catheterization by Dr. Curry revealed a culprit high- grade proximal circumflex stenosis. I was asked to perform intervention. HISTORY: A 64-year-old male with non-ST elevation infarct. Diagnostic cath results as above. INTERVENTIONAL MEDICATIONS: 1. Brilinta 180 mg p.o. loading dose. 2. Heparin 8000 units IV. GUIDING CATHETER: 6F VL 3.5. WIRE: 14 BMW. A 4 x 16 Synergy drug-eluting stent was deployed at 16 atmospheres, then postdilated with a 4 x 15 NC balloon to 20 atmospheres. Final AO 146/70. ANGIOGRAPHY: For the diagnostic report, see Dr. Curry's report. The circumflex is large, not dominant, with a very large single marginal branch , which has a proximal 80% discrete stenosis. Distal flow is ADRIANA 3. After stent deployment and postdilatation, there is no significant residual stenosis, there is normal antegrade flow, no dissection. CONCLUSION: 1. One-vessel disease circumflex with non-ST elevation infarct presentation, excellent angiographic result with drug-eluting stent placement. 2. Hemostasis, right radial, with a Vasc Band. [id number]/[facility] #: [id number] [facility]
[2019-08-14] MEDS: Zolpidem TAB* 5 MG PO SCH (22:34)
[2019-08-15 03:39] LABS: BUN/Creatinine Ratio 23.9 (8-20); Calcium 9.4 mg/dL (8.6-10.3); EGFR African American 134.7 (>60); EGFR Non-African American 111.3 (>60); Magnesium 1.9 mg/dL (1.9-2.7)
--- NOTE | 2019-08-15 07:35 | PN ---
Subjective - Subjective Reason for Note: Discharge Note History: Contingent discharge summary I have reviewed the events of the past few days with the patient and the EMR. He sustained a NSTEMI and this was found to be due to single vessel disease with 80% stenosis in a dominant circumflex coronary artery. Dr. López placed a drug eluting stent through this lesion. He tolerated the procedure well and his troponin I levels have come down. He was walking with no problems yesterday and this morning. He denies any chest pain or discomfort, dyspnea, palpitations, nausea, diaphoresis. He has no cough/sputum. He has no GI or symptoms. He is tolerating his new drug regimen He was awake in the night and was remembering his late and was feeling deep sorrow and crying. The nurses came in and were concerned about his heart. His telemetry strip at 2:15 am showed 7 beats of an irregular, broad complex, slow rhythm. Otherwise, telemetry was normal. Active Problems: Active Problems Dysrhythmia, cardiac (Acute) I49.9 NSTEMI (non-ST elevated myocardial infarction) (Acute) I21.4 Pre-diabetes (Acute) R73.03 Alcohol dependence (Chronic) F10.20 Hypercholesterolemia (Chronic) E78.00 Obesity (Chronic) E66.9 Tobacco abuse (Chronic) Z72.0 Current Medications: Current Medications Acetaminophen (Tylenol Tab*) 650 mg PO Q4H PRN PRN Reason: MILD PAIN or TEMP > 100.4 Aspirin (Aspirin 81 Mg Chew Tab*) 81 mg PO DAILY [facility] Last Admin: 08/14/19 08:33 Dose: 81 mg Atorvastatin Calcium (Lipitor*) 80 mg PO DAILY [facility] Last Admin: 08/14/19 08:33 Dose: 80 mg Folic Acid (Folvite Tab*) 1 mg PO DAILY [facility] Last Admin: 08/14/19 08:33 Dose: 1 mg Lorazepam (Ativan Tab(*)) 0 - [address] [facility] PROTOCOL [facility]; Protocol Metoprolol Tartrate (Lopressor Tab*) 25 mg PO BID [facility] Last Admin: 08/14/19 21:05 Dose: 25 mg Multivitamins/Minerals (Theragran/Minerals Tab*) 1 tab PO DAILY [facility] Last Admin: 08/14/19 08:33 Dose: 1 tab Nicotine Polacrilex (Nicotine Gum*) 2 mg PO Q2H PRN PRN Reason: CRAVING Nitroglycerin (Nitroglycerin Tab 0.4 Mg*) 0.4 mg SL Q5M PRN PRN Reason: ANGINA Thiamine HCl (Vitamin B-1 Tab*) 100 mg PO DAILY [facility] Last Admin: 08/14/19 08:33 Dose: 100 mg Ticagrelor (Brilinta*) 90 mg PO BID [facility] Last Admin: 08/14/19 21:04 Dose: 90 mg Zolpidem Tartrate (Ambien Tab*) 5 mg PO BEDTIME [facility] Last Admin: 08/14/19 22:34 Dose: 5 mg Home Medications: Home Medications Medication Instructions Recorded Confirmed Type Cholecalciferol (Vitamin D3) 2,000 units PO DAILY 12/23/13 08/13/19 History [Vitamin D3] Eszopiclone [Lunesta] 2 mg PO BEDTIME 12/23/13 08/13/19 History Ibuprofen TAB* [Motrin TAB* 600 MG] 600 mg PO Q8H PRN #30 tab 01/23/18 08/13/19 Rx Ticagrelor* [Brilinta 90 MG*] 90 mg PO BID #60 tab 08/13/19 Rx Allergies: Allergies Allergy/AdvReac Type Severity Reaction Status Date / Time Penicillins Allergy Hives Verified 01/23/18 08:33 Objective - Vital Signs Vital Signs: Vital Signs 08/14/19 08/14/19 08/14/19 07:30 07:45 07:47 Temperature Pulse Rate 56 55 Respiratory 28 16 18 Rate Blood Pressure 127/71 125/76 (mmHg) O2 Sat by Pulse 95 96 Oximetry 08/14/19 08/14/19 08/14/19 07:59 08:00 08:15 Temperature 97.7 F Pulse Rate Respiratory 19 17 Rate Blood Pressure 139/76 125/74 (mmHg) O2 Sat by Pulse Oximetry 08/14/19 08/14/19 08/14/19 08:30 08:45 09:00 Temperature Pulse Rate Respiratory 20 18 35 Rate Blood Pressure 127/79 131/77 138/82 (mmHg) O2 Sat by Pulse Oximetry 08/14/19 08/14/19 08/14/19 09:15 09:30 09:46 Temperature Pulse Rate 65 Respiratory 12 24 23 Rate Blood Pressure 150/88 171/117 132/80 (mmHg) O2 Sat by Pulse 96 Oximetry 08/14/19 08/14/19 08/14/19 10:00 10:11 10:12 Temperature Pulse Rate Respiratory 16 21 21 Rate Blood Pressure 144/92 (mmHg) O2 Sat by Pulse Oximetry 08/14/19 08/14/19 08/14/19 10:15 10:31 10:38 Temperature Pulse Rate Respiratory 18 16 16 Rate Blood Pressure 132/94 132/74 (mmHg) O2 Sat by Pulse Oximetry 08/14/19 08/14/19 08/14/19 10:46 11:00 11:01 Temperature Pulse Rate Respiratory 22 19 12 Rate Blood Pressure 134/81 120/75 (mmHg) O2 Sat by Pulse Oximetry 08/14/19 08/14/19 08/14/19 11:15 11:31 11:45 Temperature Pulse Rate Respiratory 15 23 22 Rate Blood Pressure 121/70 130/71 130/78 (mmHg) O2 Sat by Pulse Oximetry 08/14/19 08/14/19 08/14/19 11:56 12:00 12:01 Temperature 98.6 F Pulse Rate Respiratory 17 20 Rate Blood Pressure 135/75 (mmHg) O2 Sat by Pulse Oximetry 08/14/19 08/14/19 08/14/19 12:15 12:32 12:40 Temperature Pulse Rate Respiratory 17 16 16 Rate Blood Pressure 130/76 126/80 (mmHg) O2 Sat by Pulse Oximetry 08/14/19 08/14/19 08/14/19 12:46 13:00 13:01 Temperature Pulse Rate Respiratory 19 22 17 Rate Blood Pressure 114/80 147/78 (mmHg) O2 Sat by Pulse Oximetry 08/14/19 08/14/19 08/14/19 13:32 15:47 19:48 Temperature 97.7 F 97.6 F Pulse Rate 54 52 Respiratory 18 16 18 Rate Blood Pressure 136/72 131/67 (mmHg) O2 Sat by Pulse 98 97 Oximetry 08/14/19 08/14/19 08/15/19 20:00 23:49 03:52 Temperature 97.6 F 97.5 F Pulse Rate 69 51 Respiratory 18 16 16 Rate Blood Pressure 113/68 125/71 (mmHg) O2 Sat by Pulse 99 99 Oximetry - Intake and Output Intake and Output: Intake & Output 08/12/19 08/13/19 08/14/19 08/15/19 11:59 11:59 11:59 11:59 Intake Total 0.8 3504.0 360 Output Total 3150 Balance 0.8 354.0 360 Weight 180 lb 202 lb 8 oz Intake: IV Fluids 0.8 1312.5 NS (0.9%) 1301 Medicated IV 11.5 CC - Nitroglycerine/ 11.5 Tridil Oral 2180 360 Output: Urine 3150 Other: Estimated Void Large ADLs: Meal Record Start: 08/13/19 11: 28 Freq: 09,13,18 Status: Inactive Protocol: Created 08/13/19 11:28 System (Rec: 08/13/19 11:28 System CARD-C14) Document 08/13/19 18:00 [id number] (Rec: 08/13/19 18:24 [id number] ICU-C16) Document 08/14/19 09:00 [id number] (Rec: 08/14/19 10:38 [id number] ICU-C15) ADLs: Meal Record Start: 08/14/19 15: 37 Freq: 09,13,18 Status: Active Protocol: Created 08/14/19 15:37 [id number] (Rec: 08/14/19 15:37 [id number] TELE-C09) Document 08/14/19 18:00 [id number] (Rec: 08/14/19 18:13 [id number] TELE-C09) Intake and Output Start: 08/13/19 07: 43 Freq: Status: Active Protocol: Created 08/13/19 07:43 System (Rec: 08/13/19 07:43 System [id number]) Document 08/13/19 20:25 [id number] (Rec: 08/13/19 20:25 [id number] ICU-C12) Intake and Output Start: 08/13/19 11: 28 Freq: Q4HR Status: Inactive Protocol: Created 08/13/19 11:28 System (Rec: 08/13/19 11:28 System CARD-C14) Document 08/13/19 14:00 [id number] (Rec: 08/13/19 15:31 [id number] ICU-C16) Document 08/13/19 15:00 [id number] (Rec: 08/13/19 15:32 [id number] ICU-C16) Document 02/03/20 16:00 [id number] (Rec: 08/13/19 16:38 [id number] ICU-C16) Document 08/13/19 20:00 [id number] (Rec: 08/13/19 20:10 [id number] ICU-C12) Document 08/13/19 23:36 [id number] (Rec: 08/13/19 23:37 [id number] ICU-C12) Document 08/14/19 00:00 [id number] (Rec: 08/14/19 00:24 [id number] ICU-C12) Document 08/14/19 03:48 [id number] (Rec: 08/14/19 03:52 [id number] ICU-C12) Document 08/14/19 08:00 [id number] (Rec: 08/14/19 10:36 [id number] ICU-C15) - Physical Exam General Physical Exam Comment: He is hemodynamically stable, warm and well perfused. General: No Cyanosis, No Anemia, No Jaundice, No Clubbing Lungs and Chest: Yes: Chest Expansion Full, Chest Expansion Symetrica, Percussion Note Resonant, Vessicular Breath Sounds. No: Crackles, Wheezes, Respiratory Distress, Use of Accessory Muscles Heart Rate and Rhythm: Regular JVP: Not Elevated Additional Cardiovascular: Yes: Normal Heart Sounds. No: Heart Murmur, Pedal Edema Abdominal Exam: Yes: Soft, Bowel Sounds Present. No: Distention, Abdominal Mass , Abdominal Tenderness - Extremities Cranial Nerves II-XII Intact: Yes Limbs: Normal Power - Neuro Orientation: A/O x3 Psychiatric: Normal Speech: Normal Results - Results Lab Results: Laboratory Results - last 24 hr 08/14/19 08/14/19 08/15/19 06:00 06:00 03:14 Sodium 138 136 Potassium 3.4 L 4.0 Chloride 109 106 Carbon Dioxide 22 24 Anion Gap 7 6 BUN 11 17 Creatinine 0.66 L 0.71 Est GFR ( Amer) 146.6 134.7 Est GFR (Non-Af Amer) 121.1 111.3 BUN/Creatinine Ratio 16.7 23.9 H Glucose 93 104 H Hemoglobin A1c 5.7 H Calcium 8.0 L 9.4 Magnesium 1.9 Troponin I 1.75 H* Assessment - Problem List Assessment: Patient Problems Dysrhythmia, cardiac (Acute) NSTEMI (non-ST elevated myocardial infarction) (Acute) Pre-diabetes (Acute) Alcohol dependence (Chronic) Hypercholesterolemia (Chronic) Obesity (Chronic) Tobacco abuse (Chronic) Plan: NSTEMI (non-ST elevated myocardial infarction) (Acute) He has single vessel coronary artery disease. He now has a drug eluting stent in the 80% circumflex coronary artery lesion. He is following the cardiology protocol following this and has initiated ticagrelor, aspirin, atorvastatin and metoprolol. We will likely also start him an ANY inhibitor Dysrhythmia, cardiac (Acute) He had an episode of 7 beats of an irregular, broad complex rhythm. He has not had any further abnormalities. His ell\ ectrolytes are normal this morning. Cardiology will review this. Pre-diabetes (Acute) His A1c is 5.7% - I will discuss this with him as an outpatient and consider lifestyle vs metformin therapy. Alcohol dependence (Chronic) I counseled him once again to stop Hypercholesterolemia (Chronic) He has started a high intensity statin Obesity (Chronic) He understands he requires slow, but sustained weight loss Tobacco abuse (Chronic) I counseled him again about stopping I discussed the above with Shawn Bonilla and he agrees with the above plan. Cardiology will decide whether he can be discharged today. If discharged, he will have a transition of care visit at my office and also one with cardiology. Disposition: home Condition: fair
[2019-08-15] MEDS: Thiamine TAB* 100 MG TAB PO SCH (09:18)
[2019-08-15] MEDS: Multivitamins/Minerals TAB PO SCH (09:18)
[2019-08-15] MEDS: Ticagrelor* 90 MG TAB PO SCH ×2 (09:18→21:01)
[2019-08-15] MEDS: Atorvastatin* 80 MG TAB PO SCH (09:18)
[2019-08-15] MEDS: Folic Acid TAB* 1 MG PO SCH (09:18)
[2019-08-15] MEDS: Aspirin 81 mg CHEW TAB* 81 MG TAB.CHEW PO SCH (09:18)
[2019-08-15] MEDS: Metoprolol Tartrate TAB* 25 MG PO SCH ×2 (09:58→21:01)
[2019-08-15] MEDS ORDERED: Metoprolol Tartrate TAB* 25 MG PO ONE (10:00)
[2019-08-15] MEDS ORDERED: Magnesium Sulfate 1 GM IV* 1 GM/100 ML BAG IV ONE (11:32)
--- NOTE | 2019-08-15 12:32 | PN ---
<Maria D Barrientos - Last Filed: 08/15/19 12:24> Subjective Date of Service: 08/15/19 - NSTEMI, newly found AFL Interval History: Last night around 0200 while awake and emotionally upset he had a 7 beat count of wide complex ventricular arrhythmia. this morning around 0728 while ambulating he developed AFL 3:1 conduction. Ventricular rate 70. He was symptomatic with c/o lightheadedness. No reoccurrence since and states historically he has not had symptoms of that in the past. Denies chest pain and offers no other complaints Medications Active Medications: Acetaminophen (Tylenol Tab*) 650 mg PO Q4H PRN PRN Reason: MILD PAIN or TEMP > 100.4 Aspirin (Aspirin 81 Mg Chew Tab*) 81 mg PO DAILY [facility] Last Admin: 08/15/19 09:18 Dose: 81 mg Atorvastatin Calcium (Lipitor*) 80 mg PO DAILY [facility] Last Admin: 08/15/19 09:18 Dose: 80 mg Folic Acid (Folvite Tab*) 1 mg PO DAILY [facility] Last Admin: 08/15/19 09:18 Dose: 1 mg Lorazepam (Ativan Tab(*)) 0 - 6 mg PO .PER [facility] PROTOCOL [facility]; Protocol Metoprolol Tartrate (Lopressor Tab*) 12.5 mg PO 0900,2100 [facility] Multivitamins/Minerals (Theragran/Minerals Tab*) 1 tab PO DAILY [facility] Last Admin: 08/15/19 09:18 Dose: 1 tab Nicotine Polacrilex (Nicotine Gum*) 2 mg PO Q2H PRN PRN Reason: CRAVING Nitroglycerin (Nitroglycerin Tab 0.4 Mg*) 0.4 mg SL Q5M PRN PRN Reason: ANGINA Thiamine HCl (Vitamin B-1 Tab*) 100 mg PO DAILY [facility] Last Admin: 08/15/19 09:18 Dose: 100 mg Ticagrelor (Brilinta*) 90 mg PO BID [facility] Last Admin: 08/15/19 09:18 Dose: 90 mg Zolpidem Tartrate (Ambien Tab*) 5 mg PO BEDTIME [facility] Last Admin: 08/14/19 22:34 Dose: 5 mg Objective Vital Signs: Temp Pulse Resp BP Pulse Ox 97.4 F 49 16 115/66 97 08/15/19 11:08 08/15/19 11:08 08/15/19 11:08 08/15/19 11:08 08/15/19 11:08 Oxygen Devices in Use Now: None Appearance: sitting in chair, A+ O x3, cooperative with exam. Offers no complaints. Ears/Nose/Mouth/Throat: NL Teeth, Lips, Gums, Clear Oropharnyx, Mucous Membranes Moist Neck: NL Appearance and Movements; NL JVP, Trachea Midline Respiratory: Symmetrical Chest Expansion and Respiratory Effort, Clear to Auscultation Cardiovascular: NL Sounds; No Murmurs; No JVD, RRR, No Edema Extremities: No Edema, - - 3+ right radial pulse. no hematoma. non tender to palpation. Skin: No Rash or Ulcers Neurological: Alert and Oriented x 3 Lines/Tubes/Other Access: Clean, Dry and Intact Peripheral IV Laboratory Results: 08/13/19 07:52 08/15/19 03:14 INR (Anticoag Therapy) 0.97 (0.82-1.09) 08/13/19 07:52 APTT 31.8 seconds (26.0-38.0) 08/13/19 07:52 Total Bilirubin 0.40 mg/dL (0.2-1.0) 08/13/19 07:52 AST 20 U/L (13-39) 08/13/19 07:52 ALT 18 U/L (7-52) 08/13/19 07:52 Alkaline Phosphatase 78 U/L (34-104) 08/13/19 07:52 CK-MB (CK-2) 12.1 ng/mL (0.6-6.3) H 08/14/19 01:26 Total Protein 7.3 g/dL (6.4-8.9) 08/13/19 07:52 Albumin 4.5 g/dL (3.2-5.2) 08/13/19 07:52 Globulin 2.8 g/dL (2-4) 08/13/19 07:52 Albumin/Globulin Ratio 1.6 (1-3) 08/13/19 07:52 Triglycerides 87 mg/dL 08/14/19 06:00 Cholesterol 154 mg/dL 08/14/19 06:00 LDL Cholesterol 89 mg/dL 08/14/19 06:00 HDL Cholesterol 48.1 mg/dL 08/14/19 06:00 08/13/19 08/13/1908/13/20 07:52 09:27 14:07 Troponin I 0.06 H* 0.19 H* 0.92 H* 08/13/19 08/14/19 08/14/19 20:20 01:26 06:00 Troponin I 1.89 H* 2.23 H* 1.75 H* Laboratory Results - last 24 hr 08/14/19 08/15/19 06:00 03:14 Sodium 136 Potassium 4.0 Chloride 106 Carbon Dioxide 24 Anion Gap 6 BUN 17 Creatinine 0.71 Est GFR ( Amer) 134.7 Est GFR (Non-Af Amer) 111.3 BUN/Creatinine Ratio 23.9 H Glucose 104 H Hemoglobin A1c 5.7 H Calcium 9.4 Magnesium 1.9 Diagnostic Imaging: To view the full procedure details, close this document and click on the camera icon from the Reports list. *[facility]* [place] [address] Main: [phone] [email or web address] Cardiac Catheterization Patient: Shawn Bonilla : 1955 Study Date: 08/13/2019 Age: 64 Gender: M HR: Height: 67 in /170.2 cm BSA: 1.99 m^2 Weight: 180 lb /81.8 kg BMI: 28.2 kg/m^2 Superintendent Menagerie: Raúl Curry MD Ordering Physician: Raúl Curry MD Referring Physician: Raúl uCrry MD, Patricio Chao, --- - Left coronary angiography. - Right coronary angiography. - Left heart catheterization with angiography. Summary: 1. 1st obtuse marginal: Ostial lesion: There is a 95% stenosis. 2. Left ventricle: Systolic function is normal. The estimated ejection fraction is 55-60%. Wall motion is normal; there are no regional wall motion abnormalities. Recommendations: PCI of OM1 Labs, prior tests, procedures, and surgery: Blood tests: Troponin I (pre-procedure) of 0.19 ng/ml. International normalized ratio (INR) of 0.97. Serum potassium (K) of 4.4 mEq/l. Serum sodium (Na) of 139 mEq/l. Serum creatinine (current admission) of 0.8 mg/dl. Blood urea nitrogen of 17 mg/dl. This report is only to be considered final once signed by the Provider(s) as displayed in the "<Electronically Signed by >" field (s). Absence of a signature indicates the report is in a draft status and still needs to be finalized. In the event this document was created by someone other than the signing Provider, the individual initiating the document will be listed in the "Entered by:" or "Dictated by:" calderón. EKG Data: Telemetry 08/15/2019 reviewed; Sinus bradycardia rate 50's. He had a sustained episode of AFL ventricular rate in 70's this morning around 0730. At 0230 he had a 7 beat count of wide complex ventricular rhythm, ECG 08/14/2019; Sinus bradycardia rate 50, no ST abnormalities. Assessment/Plan #1; NSTEMI s/p TEVIN to OM1 08/13/2019. LVEF 55% on LV gram. No recurrent c/o chest pain since presentation. Now on ASA 81/day, Brilinta 90mg Po BID, Lipitor 80QHS and Lopressor therapy. He has had periods of relative bradycardia thus, will reduce Lopressor to 12.5mg PO BID. Right radial access site examined, no hematoma. #2 h/o HLD; LDL 89. Goal LDL 70 now on high intensity statin therapy. Will need repeat outpatient FLP/LFT in 6 weeks time. #3 h/o Tobacco use; I personally reviewed importance of smoking cessation with patient for overall cardiovascular benefits. Continue nicotine patch. #4 Newly found AFL with controlled ventricular rate. Occurred while walking. Patient symptomatic with c/o lightheadedness. States this has not happened in the past. He has a known h/o alcoholism and states he typically consumes 10 ounces of vodka a day. Denies withdrawal. Will observe for another 24 hours. If recurrent AFL will need to address OAC therapy. He will need an outpatient 30 day EM. Mag replaced. He had a 7 beat count of non sustained wide complex ventricular rhythm. patient was asymptomatic at that time. #5 Disposition pending course. case discussed with Dr. López who agrees with above assessment and plan. Attending: Albin Lópze <Albin López - Last Filed: 08/15/19 18:14> Medications Active Medications: Acetaminophen (Tylenol Tab*) 650 mg PO Q4H PRN PRN Reason: MILD PAIN or TEMP > 100.4 Aspirin (Aspirin 81 Mg Chew Tab*) 81 mg PO DAILY [facility] Last Admin: 08/15/19 09:18 Dose: 81 mg Atorvastatin Calcium (Lipitor*) 80 mg PO DAILY [facility] Last Admin: 08/15/19 09:18 Dose: 80 mg Folic Acid (Folvite Tab*) 1 mg PO DAILY [facility] Last Admin: 08/15/19 09:18 Dose: 1 mg Lorazepam (Ativan Tab(*)) 0 - 6 mg PO .PER [facility] PROTOCOL [facility]; Protocol Metoprolol Tartrate (Lopressor Tab*) 12.5 mg PO 0900,2100 [facility] Multivitamins/Minerals (Theragran/Minerals Tab*) 1 tab PO DAILY [facility] Last Admin: 08/15/19 09:18 Dose: 1 tab Nicotine Polacrilex (Nicotine Gum*) 2 mg PO Q2H PRN PRN Reason: CRAVING Nitroglycerin (Nitroglycerin Tab 0.4 Mg*) 0.4 mg SL Q5M PRN PRN Reason: ANGINA Thiamine HCl (Vitamin B-1 Tab*) 100 mg PO DAILY [facility] Last Admin: 08/15/19 09:18 Dose: 100 mg Ticagrelor (Brilinta*) 90 mg PO BID [facility] Last Admin: 08/15/19 09:18 Dose: 90 mg Zolpidem Tartrate (Ambien Tab*) 5 mg PO BEDTIME [facility] Last Admin: 08/14/19 22:34 Dose: 5 mg Objective Vital Signs: Temp Pulse Resp BP Pulse Ox 97.3 F 55 20 111/63 100 08/15/19 15:33 08/15/19 15:33 08/15/19 16:00 08/15/19 15:33 08/15/19 15:33 Laboratory Results: 08/13/19 07:52 08/15/19 03:14 INR (Anticoag Therapy) 0.97 (0.82-1.09) 08/13/19 07:52 APTT 31.8 seconds (26.0-38.0) 08/13/19 07:52 Total Bilirubin 0.40 mg/dL (0.2-1.0) 08/13/19 07:52 AST 20 U/L (13-39) 08/13/19 07:52 ALT 18 U/L (7-52) 08/13/19 07:52 Alkaline Phosphatase 78 U/L (34-104) 08/13/19 07:52 CK-MB (CK-2) 12.1 ng/mL (0.6-6.3) H 08/14/19 01:26 Total Protein 7.3 g/dL (6.4-8.9) 08/13/19 07:52 Albumin 4.5 g/dL (3.2-5.2) 08/13/19 07:52 Globulin 2.8 g/dL (2-4) 08/13/19 07:52 Albumin/Globulin Ratio 1.6 (1-3) 08/13/19 07:52 Triglycerides 87 mg/dL 08/14/19 06:00 Cholesterol 154 mg/dL 08/14/19 06:00 LDL Cholesterol 89 mg/dL 08/14/19 06:00 HDL Cholesterol 48.1 mg/dL 08/14/19 06:00 08/13/19 08/13/19 08/13/19 07:52 09:27 14:07 Troponin I 0.06 H* 0.19 H* 0.92 H* 08/13/19 08/14/19 08/14/19 20:20 01:26 06:00 Troponin I 1.89 H* 2.23 H* 1.75 H* Assessment/Plan #4 After review of telestrips from 1258, much is artifact. STRIP [id number] VERY HIGH VOLTage of "flutter waves" in lead2 suggests artifact.
[2019-08-15] MEDS ORDERED: Metoprolol Tartrate TAB* 25 MG PO SCH (21:00)
[2019-08-15] MEDS: Zolpidem TAB* 5 MG PO SCH (23:05)
--- NOTE | 2019-08-16 07:59 | PN ---
Subjective - Subjective Reason for Note: Discharge Note History: Discharge summary He had an episode which at first was thought to be atrial flutter, but the was considered artifact. He has had a sinus bradycardia overnight. He is feeling well and ready to go home Active Problems: Active Problems Dysrhythmia, cardiac (Acute) I49.9 NSTEMI (non-ST elevated myocardial infarction) (Acute) I21.4 Pre-diabetes (Acute) R73.03 Alcohol dependence (Chronic) F10.20 Hypercholesterolemia (Chronic) E78.00 Obesity (Chronic) E66.9 Tobacco abuse (Chronic) Z72.0 Current Medications: Current Medications Acetaminophen (Tylenol Tab*) 650 mg PO Q4H PRN PRN Reason: MILD PAIN or TEMP > 100.4 Aspirin (Aspirin 81 Mg Chew Tab*) 81 mg PO DAILY [facility] Last Admin: 08/15/19 09:18 Dose: 81 mg Atorvastatin Calcium (Lipitor*) 80 mg PO DAILY [facility] Last Admin: 08/15/19 09:18 Dose: 80 mg Folic Acid (Folvite Tab*) 1 mg PO DAILY [facility] Last Admin: 08/15/19 09:18 Dose: 1 mg Lorazepam (Ativan Tab(*)) 0 - 6 mg PO .PER [facility] PROTOCOL [facility]; Protocol Metoprolol Tartrate (Lopressor Tab*) 12.5 mg PO 0900,2100 [facility] Last Admin: 08/15/19 21:01 Dose: 12.5 mg Multivitamins/Minerals (Theragran/Minerals Tab*) 1 tab PO DAILY [facility] Last Admin: 08/15/19 09:18 Dose: 1 tab Nicotine Polacrilex (Nicotine Gum*) 2 mg PO Q2H PRN PRN Reason: CRAVING Nitroglycerin (Nitroglycerin Tab 0.4 Mg*) 0.4 mg SL Q5M PRN PRN Reason: ANGINA Thiamine HCl (Vitamin B-1 Tab*) 100 mg PO DAILY [facility] Last Admin: 08/15/19 09:18 Dose: 100 mg Ticagrelor (Brilinta*) 90 mg PO BID [facility] Last Admin: 08/15/19 21:01 Dose: 90 mg Zolpidem Tartrate (Ambien Tab*) 5 mg PO BEDTIME [facility] Last Admin: 08/15/19 23:05 Dose: 5 mg Home Medications: Home Medications Medication Instructions Recorded Confirmed Type Cholecalciferol (Vitamin D3) 2,000 units PO DAILY 12/23/13 08/13/19 History [Vitamin D3] Eszopiclone [Lunesta] 2 mg PO BEDTIME 12/23/13 08/13/19 History Ibuprofen TAB* [Motrin TAB* 600 MG] 600 mg PO Q8H PRN #30 tab 01/23/18 08/13/19 Rx Ticagrelor* [Brilinta 90 MG*] 90 mg PO BID #60 tab 08/13/19 Rx Allergies: Allergies Allergy/AdvReac Type Severity Reaction Status Date / Time Penicillins Allergy Hives Verified 01/23/18 08:33 Objective - Vital Signs Vital Signs: Vital Signs 08/15/19 08/15/19 08/15/19 08:00 11:08 12:00 Temperature 97.4 F Pulse Rate 49 Respiratory 18 16 18 Rate Blood Pressure 115/66 (mmHg) O2 Sat by Pulse 97 Oximetry 08/15/19 08/15/19 08/15/19 15:33 16:00 19:40 Temperature 97.3 F 98 F Pulse Rate 55 59 Respiratory 20 20 18 Rate Blood Pressure 111/63 135/74 (mmHg) O2 Sat by Pulse 100 97 Oximetry 08/15/19 08/15/19 08/16/19 20:00 23:00 03:00 Temperature 97.6 F 97.9 F Pulse Rate 50 50 Respiratory 18 17 17 Rate Blood Pressure 120/71 113/70 (mmHg) O2 Sat by Pulse 97 99 Oximetry 08/16/19 06:56 Temperature Pulse Rate Respiratory 18 Rate Blood Pressure (mmHg) O2 Sat by Pulse Oximetry - Intake and Output Intake and Output: Intake & Output 08/13/19 08/14/19 08/15/19 08/16/19 11:59 11:59 11:59 11:59 Intake Total 0.8 3504.0 840 600 Output Total 3150 Balance 0.8 354.0 840 600 Weight 180 lb 202 lb 8 oz Intake: IV Fluids 0.8 1312.5 NS (0.9%) 1301 Medicated IV 11.5 CC - Nitroglycerine/ 11.5 Tridil Oral 2180 840 600 Output: Urine 3150 Other: Estimated Void Large # Bowel Movements 2 Estimated Stool Amount Medium # Voids 5 ADLs: Meal Record Start: 08/13/19 11: 28 Freq: 09,13,18 Status: Inactive Protocol: Created 08/13/19 11:28 System (Rec: 08/13/19 11:28 System CARD-C14) Document 08/13/19 18:00 [id number] (Rec: 08/13/19 18:24 [id number] ICU-C16) Document 08/14/19 09:00 [id number] (Rec: 08/14/19 10:38 [id number] ICU-C15) ADLs: Meal Record Start: 08/14/19 15: 37 Freq: 09,13,18 Status: Active Protocol: Created 08/14/19 15:37 [id number] (Rec: 08/14/19 15:37 [id number] TELE-C09) Document 08/14/19 18:00 [id number] (Rec: 08/14/19 18:13 [id number] TELE-C09) Document 08/15/19 09:00 [id number] (Rec: 08/15/19 09:14 [id number] TELE-C07) Document 08/15/19 13:00 [id number] (Rec: 08/15/19 13:13 [id number] TELE-C07) Document 08/15/19 18:00 [id number] (Rec: 08/15/19 18:14 [id number] TELE-C07) Intake and Output Start: 08/13/19 07: 43 Freq: Status: Active Protocol: Created 08/13/19 07:43 System (Rec: 08/13/19 07:43 System ED-C24) Document 08/13/19 20:25 [id number] (Rec: 08/13/19 20:25 [id number] ICU-C12) Intake and Output Start: 08/13/19 11: 28 Freq: Q4HR Status: Inactive Protocol: Created 08/13/19 11:28 System (Rec: 08/13/19 11:28 System CARD-C14) Document 08/13/19 14:00 [id number] (Rec: 08/13/19 15:31 [id number] ICU-C16) Document 08/13/19 15:00 [id number] (Rec: 08/13/19 15:32 [id number] ICU-C16) Document 08/13/19 16:00 [id number] (Rec: 08/13/19 16:38 [id number] ICU-C16) Document 08/13/19 20:00 [id number] (Rec: 08/13/19 20:10 [id number] ICU-C12) Document 08/13/19 23:36 [id number] (Rec: 08/13/19 23:37 [id number] ICU-C12) Document 08/14/19 00:00 [id number] (Rec: 08/14/19 00:24 [id number] ICU-C12) Document 08/14/19 03:48 [id number] (Rec: 08/14/19 03:52 [id number] ICU-C12) Document 08/14/19 08:00 [id number] (Rec: 08/14/19 10:36 [id number] ICU-C15) - Physical Exam General: No Cyanosis, No Anemia, No Jaundice, No Clubbing Lungs and Chest: Yes: Chest Expansion Full, Chest Expansion Symetrica, Percussion Note Resonant, Vessicular Breath Sounds. No: Crackles, Wheezes Heart Rate and Rhythm: Regular [place] Beat: Non Displaced Additional Cardiovascular: Yes: Normal Heart Sounds. No: Heart Murmur, Pedal Edema Abdominal Exam: Yes: Soft. No: Distention, Abdominal Tenderness Assessment - Problem List Assessment: Patient Problems Dysrhythmia, cardiac (Acute) NSTEMI (non-ST elevated myocardial infarction) (Acute) Pre-diabetes (Acute) Alcohol dependence (Chronic) Hypercholesterolemia (Chronic) Obesity (Chronic) Tobacco abuse (Chronic) Plan: He is walking without any trouble and has no other new symptoms. Telemetry is benign. I am discharging him.
[2019-08-16 08:07] VITALS: BP 119/66
[2019-08-16] MEDS: Atorvastatin* 80 MG TAB PO SCH (09:42)
[2019-08-16] MEDS: Aspirin 81 mg CHEW TAB* 81 MG TAB.CHEW PO SCH (09:42)
[2019-08-16] MEDS: Folic Acid TAB* 1 MG PO SCH (09:42)
[2019-08-16] MEDS: Ticagrelor* 90 MG TAB PO SCH (09:42)
[2019-08-16] MEDS: Multivitamins/Minerals TAB PO SCH (09:42)
[2019-08-16] MEDS: Thiamine TAB* 100 MG TAB PO SCH (09:42)
[2019-08-16] MEDS: Metoprolol Tartrate TAB* 25 MG PO SCH (09:43)
--- NOTE | 2019-08-16 11:14 | DS ---
CC: Dr. Albin López; Dr. Raúl Curry DISCHARGE SUMMARY: DATE OF ADMISSION: 08/13/19 DATE OF DISCHARGE: 08/16/19 DISCHARGE DIAGNOSES: 1. Non-ST elevation myocardial infarction with 80% occlusion of terminal branch circumflex coronary artery. 2. Comorbidities: Tobacco abuse, alcohol dependence, prediabetes, obesity, hypercholesterolemia. PROCEDURES: Diagnostic coronary angiogram - Dr. Raúl Curry. Interventional angioplasty and drug eluting stent placement - Dr. Albin López DISPOSITION: Home. CONDITION: Good. HISTORY: Shawn Bonilla is a 64-year-old right-handed white male, his presentation is documented in Dr. Terry Conde's admitting history and physical. In short, Shawn Bonilla is a primary care patient of [facility]. He had a Medicare annual wellness visit with a physical examination and EKG on Tuesday before admission. On Tuesday, he was getting ready for [employer], was on the treadmill, after 10 minutes developed shortness of breath and stopped. On Tuesday morning, he developed chest pressure radiating to his neck and jaw without any provocative exercise, went to the emergency room. EXAMINATION: Temperature 97.9, heart rate 57, respirations 15, oxygen saturation 100% on room air, blood pressure 141/78. Cardiovascular System: Pulse is regular, heart sounds are normal, no added sounds or murmurs. Otherwise, benign examination. INITIAL INVESTIGATIONS: White count 4.4, hemoglobin 14, hematocrit 41, platelets 277, 47% neutrophils, INR 0.97. Chemistry was normal with a glucose of 100. LFTs were normal. Troponin I was 0.06 followed by 0.19. Chest x-ray was benign. Initial EKG: Sinus bradycardia 51, T-wave inversion III. On followup EKG, T-wave inversions in III, flat T's in aVF. Initial impression: Acute coronary syndrome, symptoms suggestive of unstable angina and NSTEMI. He was transferred to the intensive care unit and prepared for cardiac catheterization. Cardiac catheterization: Dr. Raúl Curry, right dominant coronary circulation , left main stem no stenosis, LAD mild diffuse disease, left circumflex normal, first obtuse marginal ostial lesion 95% stenosis, ejection fraction 55% to 60%, normal wall motion. Procedures: 08/14/19, he had a cardiac catheterization with Dr. López. His findings: Large circumflex which was not dominant, single marginal branch with 80% discrete stenosis. He deployed a drug-eluting stent. Other investigations: Hemoglobin A1c 5.7%, troponin I series on 08/14/19 peaked at 2.23, came down to 1.75 on later that day. HOSPITAL COURSE: Shawn Bonilla tolerated well the angioplasty and stent placement , and the rest of his hospital stay was unremarkable. He had a couple of artifacts on his telemetry, which were questioned as being atrial flutter, but was finally dismissed by the broom man. He was little lightheaded and tachycardic the first time he walked after getting out of bed, but after that he had no problems. On the day of discharge, he is feeling well. He has no chest pain, shortness of breath, palpitations, ankle swelling, lightheadedness. He denies cough or sputum. Gastrointestinal System: No symptoms. Genitourinary System: No symptoms. PHYSICAL EXAMINATION ON DAY OF DISCHARGE: Vital Signs: Temperature 97.3, pulse 62, respirations 18, oxygen saturation 99% on room air, blood pressure 119 /66. He has no cyanosis, anemia, jaundice, clubbing, or lymphadenopathy. Cardiovascular System: His pulse was regular, normal character and volume. Venous pressure not elevated. Heart sounds were normal. No added sounds. No murmurs. No pedal edema. Respiratory System: His chest was clear. Abdomen: No distention, masses, tenderness, or organomegaly. He is alert and oriented and is conversational. ASSESSMENT AND PLAN: 1. Coronary artery disease. Coronary artery drug-eluting stent placed. He will follow the protocol initiated by Cardiology, which includes ticagrelor, aspirin, beta-blockade, and atorvastatin. He will follow up with Cardiology as an outpatient. 2. Tobacco abuse. We have counseled him to stop, he is determined to do this. 3. Alcohol dependence. He agrees to discontinue drinking alcohol. 4. Prediabetes, a new diagnosis. We will manage this initially with exercise. I will consider the use of metformin later. 5. Obesity. He will attempt gradual sustained weight loss. He will follow up with Cardiology and have a [id number] visit at my office. DISCHARGE MEDICATIONS: 1. Ticagrelor 19 mg twice daily. 2. Aspirin 81 mg daily. 3. Atorvastatin 80 mg q.h.s. 4. Metoprolol 12.5 mg daily. 5. Lunesta 2 mg as needed at bedtime. 6. Vitamin D 2000 units daily. [id number]/[facility] #: [id number] [facility]
== END 2019-08-16 10:45 | disposition home or self-care (01) | DRG 247 ==
LOC: ED 07:37 → ICU 10:08 → MEDTELE 08-14 15:38
PROVIDERS: ADMIT Internal Medicine; ATTEND Internal Medicine
PROC: B2111ZZ Fluoroscopy of Multiple Coronary Arteries using Low Osmolar Contrast (ICD-10-PCS; 2019-08-13)
PROC: B2151ZZ Fluoroscopy of Left Heart using Low Osmolar Contrast (ICD-10-PCS; 2019-08-13)
PROC: 027034Z Dilation of Coronary Artery, One Artery with Drug-eluting Intraluminal Device, Percutaneous Approach (ICD-10-PCS; principal; 2019-08-13 12:00)
PROC: 4A023N7 Measurement of Cardiac Sampling and Pressure, Left Heart, Percutaneous Approach (ICD-10-PCS; 2019-08-13 12:00)
DX: I21.4 Non-ST elevation (NSTEMI) myocardial infarction (principal); I25.118 Atherosclerotic heart disease of native coronary artery with other forms of angina pectoris; E78.00 Pure hypercholesterolemia, unspecified; E66.9 Obesity, unspecified; K21.9 Gastro-esophageal reflux disease without esophagitis; F17.210 Nicotine dependence, cigarettes, uncomplicated; Y90.9 Presence of alcohol in blood, level not specified; E78.5 Hyperlipidemia, unspecified; F10.20 Alcohol dependence, uncomplicated; R73.03 Prediabetes; I49.3 Ventricular premature depolarization; R00.0 Tachycardia, unspecified; R42 Dizziness and giddiness; E87.6 Hypokalemia; Z68.31 Body mass index [BMI] 31.0-31.9, adult; Z88.0 Allergy status to penicillin; Z79.82 Long term (current) use of aspirin; Z79.02 Long term (current) use of antithrombotics/antiplatelets; Z79.899 Other long term (current) drug therapy
CPT/HCPCS: 36415; 71046; 80048; 80053; 80061; 82550; 82553; 83036; 83735; 84484; 85025; 85347; 85610; 85730; 87641; 93005; 93458; 94660; 99285; A9270-GY; C1725; C1769; C1876; C1887; C9600-LC; J1644; J2250; J3010; J3411; J3475